=== PATIENT | female | born 1990 | race Caucasian/White ===

== ENCOUNTER 2017-04-16 17:46 | Emergency (ER) | payer OTHER ==
[2017-04-16 19:14] LABS: BASOPHIL 0.2 % (0-2); HCT 38.3 % (37.0-47.0); LYMPHOCYTE 25.8 % (15-48); MCH 28.6 pg (25.0-31.0); MCHC 33.9 g/dL (32.0-36.0); MCV 84.2 fL (78.0-100.0); MONOCYTE 6.8 % (0-12); MPV 9.5 fL (6.0-9.5); NEUTROPHIL 63.2 % (41-80); PLT 272 K/uL (150-400); RBC 4.55 M/uL (4.20-5.40); RDW 12.8 % (11.5-14.0); WBC 8.1 K/uL (4.0-10.5)
[2017-04-16 19:33] LABS: CLARITY SLIGHTLY HAZY (CLEAR); COLOR YELLOW (YELLOW)
[2017-04-16 19:34] LABS: BILIRUBIN NEGATIVE (NEGATIVE); BLOOD 3+ Ery/uL (NEGATIVE); GLUCOSE (U) NORMAL (NORMAL); KETONE (U) NEGATIVE (NEGATIVE); LEUKOCYTES 1+ Leu/uL (NEGATIVE); NITRITE NEGATIVE (NEGATIVE); PROTEIN TRACE (LOW) mg/dL (NEGATIVE); UROBILINOGEN 0.2 mg/dL (0.2-1.0); pH 6.5 (5.0-9.0)
[2017-04-16 19:36] LABS: BACTERIA 1+
== END 2017-04-16 21:10 | disposition home or self-care (01) ==
LOC: FER 17:46
PROVIDERS: Nurse Practitioner
DX: O20.0 Threatened abortion (principal); Z88.2 Allergy status to sulfonamides; Z3A.01 Less than 8 weeks gestation of pregnancy
CPT/HCPCS: 36415; 76817; 81001; 84702; 85025; 86900; 86901

== ENCOUNTER 2021-02-03 23:41 | Emergency (ER) | payer OTHER ==
[2021-02-04] MEDS ORDERED: CYCLOBENZAPRINE10 MG PO (00:19)
[2021-02-04] MEDS ORDERED: DICLOFENAC SODI75 MG PO (00:19)
== END 2021-02-04 00:28 | disposition home or self-care (01) ==
LOC: FER 23:41
DX: S13.4XXA Sprain of ligaments of cervical spine, initial encounter (principal); S33.5XXA Sprain of ligaments of lumbar spine, initial encounter; Z88.2 Allergy status to sulfonamides; V49.60XA Unspecified car occupant injured in collision with unspecified motor vehicles in traffic accident, initial encounter; Y92.410 Unspecified street and highway as the place of occurrence of the external cause
CPT/HCPCS: 99283